=== PATIENT | female | born 1955 | race Caucasian/White ===

== ENCOUNTER 2019-04-08 18:19 | Emergency (ER) | payer SELFPAY ==
[~2019-04-08] VITALS: Ht 157.5 cm; Wt 72.6 kg
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
[2019-04-08] MEDS ORDERED: KETOROLAC TROMETHAMINE INJ 30 MG/ML VIAL ONE (19:20)
[2019-04-08] MEDS ORDERED: KETOROLAC TROMETHAMINE INJ 30 MG/ML VIAL IM ONE (19:30)
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
[2019-04-08 22:05] VITALS: BP 161/97
--- NOTE | 2019-04-08 22:05 | NUR ---
PT IS WAITING IN THE CAR FOR THE IMAGING DISK.
== END 2019-04-08 21:50 | disposition home or self-care (01) ==
LOC: ER 18:22
DX: S16.1XXA Strain of muscle, fascia and tendon at neck level, initial encounter (principal); S39.012A Strain of muscle, fascia and tendon of lower back, initial encounter; Z98.890 Other specified postprocedural states; V49.49XA Driver injured in collision with other motor vehicles in traffic accident, initial encounter; Y93.89 Activity, other specified; Y92.413 State road as the place of occurrence of the external cause; Y99.8 Other external cause status
CPT/HCPCS: 71045; 72125; 72131; 72170; 96372; 99284; J1885